=== PATIENT | female | born 1950 | race Caucasian/White ===

== ENCOUNTER 2021-10-27 22:17 | Inpatient (IN) | payer MEDICARE, OTHER ==
[~2021-10-27] VITALS: Ht 154.9 cm; Wt 56.7 kg
--- NOTE | 2021-10-27 22:26 | NUR ---
DR Ricci at bedside, MSE in progress
[2021-10-27] MEDS ORDERED: ATOR10TA PO (22:29)
[2021-10-27] MEDS ORDERED: OMEP20TA20 PO (22:29)
[2021-10-27] MEDS ORDERED: HYDROMORPHONE 1 MG/1 ML DISP.SYRIN IM ONE (22:30)
[2021-10-27] MEDS ORDERED: ONDANSETRON ODT 4 MG TAB.RAPDIS SL ONE (22:30)
[2021-10-27] MEDS ORDERED: HYDROMORPHONE 1 MG/1 ML DISP.SYRIN ONE (22:33)
[2021-10-27] MEDS ORDERED: ONDANSETRON ODT 4 MG TAB.RAPDIS ONE (22:33)
[2021-10-27 22:52] LABS: HEMATOCRIT 34.7 % (31.2-41.9); MEAN CORPUSCULAR HEMOGLOBIN 31.5 uug (24.7-32.8); MEAN CORPUSCULAR VOLUME 89.9 fL (75.5-95.3); PLATELET COUNT (AUTO) 196 K/uL (179-408)
[2021-10-27 23:00] LABS: CREATININE 0.9 mg/dL (0.6-1.3); POTASSIUM 3.4 mmol/L (3.5-5.1)
[2021-10-27 23:05] LABS: BILIRUBIN,DIRECT 0.1 mg/dL (0.0-0.2); BILIRUBIN,TOTAL 0.5 mg/dL (0.2-1.0); TOTAL PROTEIN, SERUM 6.7 g/dL (6.4-8.2)
--- NOTE | 2021-10-27 23:11 | NUR ---
called [facility] for panel call
--- NOTE | 2021-10-27 23:13 | NUR ---
Dr Nieto - jonah, notified
[2021-10-27] MEDS ORDERED: IV D5W-0.45% NS +20 KCL 1,000 ML IV ONE ×2 (23:15→23:32)
[2021-10-28] VITALS (7 sets, daily range): BP systolic 101–133; BP diastolic 49–85
[2021-10-28] MEDS ORDERED: REMEDY ESSENTIAL ZINC PASTE 113 GM TP PRN (00:45)
[2021-10-28] MEDS ORDERED: ACETAMINOPHEN 325 MG TABLET PO PRN (00:45)
[2021-10-28] MEDS ORDERED: MAGNESIUM HYDROXIDE 30 ML LIQUID UDC PO PRN (00:45)
--- NOTE | 2021-10-28 00:56 | NUR ---
Called 3rd floor to give report. Spoke with Yelena LYN; will call me back
--- NOTE | 2021-10-28 01:00 | NUR ---
PATIENT IS A/OX4, NAD NOTED
[2021-10-28] MEDS ORDERED: ONDANSETRON 4 MG/2 ML VIAL ONE ×3 (01:22→13:50)
[2021-10-28] MEDS ORDERED: HYDROMORPHONE 1 MG/1 ML DISP.SYRIN ONE (02:11)
[2021-10-28] MEDS ORDERED: ONDANSETRON 4 MG/2 ML VIAL IV ONE ×2 (02:15→13:00)
[2021-10-28] MEDS ORDERED: HYDROMORPHONE 1 MG/1 ML DISP.SYRIN IV ONE (02:15)
--- NOTE | 2021-10-28 04:20 | NUR ---
called 3rd floor to give report. Waiting for call back
--- NOTE | 2021-10-28 04:37 | NUR ---
report given to Yelena LYN
--- NOTE | 2021-10-28 05:21 | NUR ---
Pt. admitted to room 317 M/S, under care of Gaetano ALANIS Belongs List completed Yelena RN aware of patient's arrival
[2021-10-28] MEDS ORDERED: MORPHINE SULFATE 4 MG/1 ML DISP.SYRIN IV PRN (05:30)
[2021-10-28] MEDS ORDERED: HYDROCODONE/APAP 5-325MG TABLET PO PRN (05:30)
--- NOTE | 2021-10-28 06:00 | NUR ---
ADMITTED THIS 71 Y.O. LADY FROM ER VIA GURNEY, ACCOMPANIED BY ER NURSES, ALERT,ORIENTEDX4, BUT VERY DISTRAUGHT DUE TO LEFT HIP PAIN. TRANSFERRED TO BED VIA SLIDING BOARD, SCREAMING SO LOUD,ACTIVE LISTENING PROVIDED AND MD NOTIFIED REGARDING NEED FOR MEDICATION FOR SEVERE PAIN.VITALS TAKEN AND RECORDED. IVF W/ POTASSIUM INFUSING WELL , IV SITE PATENT AND INTACT ON LEFT AC.REPOSITIONED,
--- NOTE | 2021-10-28 06:22 | NUR ---
MEDICATED W/ MORPHINE SULFATE 4 MG IV FOR SEVERE PAIN,WILL EVALUATE EFFECTIVENESS LATER.
--- NOTE | 2021-10-28 06:23 | NUR ---
NPO OBSERVED AND MAINTAINED.
[2021-10-28 07:09] LABS: HEMATOCRIT 35.2 % (31.2-41.9); MEAN CORPUSCULAR HEMOGLOBIN 31.9 uug (24.7-32.8); MEAN CORPUSCULAR VOLUME 90.9 fL (75.5-95.3); PLATELET COUNT (AUTO) 153 K/uL (179-408)
--- NOTE | 2021-10-28 07:10 | NUR ---
ENDORSED TO AM NURSE,IN APPARENTLY FAIR CONDTION
[2021-10-28 07:30] LABS: CREATININE 0.8 mg/dL (0.6-1.3); POTASSIUM 3.9 mmol/L (3.5-5.1)
--- NOTE | 2021-10-28 08:00 | NUR ---
DR. GARCIA CLEARED PT FOR SURGERY. NOTIFIED DR DELGADO. WILL PERFORM IM NAILING OF LEFT FEMUR.
[2021-10-28] MEDS: DOCUSATE SODIUM 100 MG CAPSULE PO SCH ×2 (09:00→21:04)
[2021-10-28] MEDS: PANTOPRAZOLE SODIUM 40 MG VIAL IV SCH (09:48)
--- NOTE | 2021-10-28 10:00 | NUR ---
SURGERY CONSENT SIGNED BY THE PATIENT. PRE OP CHECK LIST DONE.
[2021-10-28] MEDS ORDERED: VANCOMYCIN 1000 MG VIAL ONE (10:36)
--- NOTE | 2021-10-28 11:45 | NUR ---
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
[2021-10-28] MEDS ORDERED: PROPOFOL 200 MG/20 ML BOTTLE ONE (12:09)
[2021-10-28] MEDS ORDERED: FENTANYL CITRATE 100 MCG/2 ML AMPUL ONE ×2 (12:09→13:44)
[2021-10-28] MEDS ORDERED: ROCURONIUM BROMIDE 50 MG/5 ML VIAL ONE (12:09)
[2021-10-28] MEDS ORDERED: SUCCINYLCHOLINE CHLORIDE 200 MG/10 ML VIAL ONE (12:09)
[2021-10-28] MEDS ORDERED: PHENYLEPHRINE 10 MG/1 ML VIAL IV ONE (13:00)
[2021-10-28] MEDS ORDERED: CEFAZOLIN 1 G VIAL IM ONE (13:00)
[2021-10-28] MEDS ORDERED: EPHEDRINE SULFATE 50 MG/ML AMPUL IM ONE (13:00)
[2021-10-28] MEDS ORDERED: GLYCOPYRROLATE 0.2 MG/ML VIAL IJ ONE (13:00)
[2021-10-28] MEDS ORDERED: DEXAMETHASONE SOD PHOSPHATE 4 MG INJ IV ONE (13:00)
[2021-10-28] MEDS ORDERED: LIDOCAINE-MPF 2% 5 ML VIAL IJ ONE (13:00)
[2021-10-28] MEDS ORDERED: SEVOFLURANE 250 ML BOTTLE IH ONE (13:00)
[2021-10-28] MEDS ORDERED: ETOMIDATE 20 MG/10 ML VIAL IV ONE (13:00)
[2021-10-28] MEDS ORDERED: NEOSTIGMINE METHYLSULFATE 10 MG/10 ML VIAL IM ONE (13:00)
[2021-10-28] MEDS ORDERED: IV D5W-0.45% NS +20 KCL 1,000 ML IV PRN (14:30)
[2021-10-28] MEDS ORDERED: HYDROCODONE/APAP 10-325 MG TABLET PO PRN (14:30)
[2021-10-28] MEDS ORDERED: IV D5W-0.45% NS +20 KCL 1,000 ML IV ONE (14:54)
[2021-10-28] MEDS: HYDROMORPHONE 1 MG/1 ML DISP.SYRIN IV PRN ×2 (16:52→21:12)
[2021-10-28] MEDS: ONDANSETRON 4 MG/2 ML VIAL IV PRN (17:30)
--- NOTE | 2021-10-28 19:00 | NUR ---
received patient in bed no sob no chest pain, no complain of pain at thie time, cont abx and hydration, cont to monitor.
[2021-10-28] MEDS: CEFAZOLIN 1 G in IV DEXTROSE 5% 50 ML IV SCH (21:04)
[2021-10-28] MEDS: ATORVASTATIN 10 MG TABLET PO SCH (21:04)
--- NOTE | 2021-10-28 21:42 | NUR ---
Patient alert awake able to make needs known, given Dilaudid 0.5mg via IV for pain of 8/10 left hip with effective results. cont to monitor.
--- NOTE | 2021-10-28 22:45 | NUR ---
report given to the next nurse.
--- NOTE | 2021-10-28 23:40 | NUR ---
RECD PT IN BED, ALERT, ORIENTED X4, RESTING QUETLY, NO DISTRESS NOTED,IV SITE PATENT AND INTACT., INSTRUCION ON HOW TO USE INCENTIVE SPIROMETER DONE. .
[2021-10-29] MEDS: ONDANSETRON 4 MG/2 ML VIAL IV PRN ×3 (03:15→18:15)
[2021-10-29] MEDS: HYDROMORPHONE 1 MG/1 ML DISP.SYRIN IV PRN ×5 (03:15→18:15)
--- NOTE | 2021-10-29 03:15 | NUR ---
REPOSITIONED FOR COMFORT, ICE PACK TO OPERATIVE SITE, MEDICATED W/ DILAUDID0.5 MG IV FOR PAIN AND ZOFRAN 4 MG IV FOR NAUSEA, RELIF AFFORDED. SLEPT AT SHORT INTERVALS.CIRC. CHECKS W/I NORMAL LIMITS.
[2021-10-29 04:35] VITALS: BP 107/62
[2021-10-29] MEDS: CEFAZOLIN 1 G in IV DEXTROSE 5% 50 ML IV SCH (04:41)
[2021-10-29 08:15] LABS: CREATININE 0.8 mg/dL (0.6-1.3); MAGNESIUM 1.7 mg/dL (1.8-2.4); PHOSPHOROUS 3.2 mg/dL (2.5-4.9); POTASSIUM 3.9 mmol/L (3.5-5.1)
[2021-10-29 08:30] LABS: HEMATOCRIT 27.7 % (31.2-41.9); MEAN CORPUSCULAR VOLUME 90.2 fL (75.5-95.3); PLATELET COUNT (AUTO) 114 K/uL (179-408)
[2021-10-29] MEDS: DOCUSATE SODIUM 100 MG CAPSULE PO SCH ×2 (09:47→21:25)
[2021-10-29] MEDS: PANTOPRAZOLE SODIUM 40 MG VIAL IV SCH (09:50)
[2021-10-29] MEDS ORDERED: MAGNESIUM OXIDE 400 MG TABLET PO ONE ×2 (10:15→12:00)
--- NOTE | 2021-10-29 11:55 | NUR ---
LEFT AC IV ACCESS INFILTRATED AND REMOVED. CHU MIDLINE 18G ESTABLISHED.
[2021-10-29 12:47] VITALS: BP 98/65
--- NOTE | 2021-10-29 13:00 | NUR ---
PT EVAL DONE. PT TOLERATED WELL. 50% WEIGHT BEARING PER PT.
[2021-10-29 15:58] VITALS: BP 96/61
[2021-10-29 20:20] VITALS: BP 88/50
[2021-10-29] MEDS ORDERED: MAG HYDROX/AL HYDROX/SIMETH 30 ML LIQUID UDC PO PRN (21:15)
[2021-10-29] MEDS: ATORVASTATIN 10 MG TABLET PO SCH (21:25)
[2021-10-29 21:36] VITALS: BP 110/57
[2021-10-30] MEDS: HYDROMORPHONE 1 MG/1 ML DISP.SYRIN IV PRN ×4 (00:15→14:25)
[2021-10-30] MEDS: ONDANSETRON 4 MG/2 ML VIAL IV PRN ×3 (00:15→14:26)
[2021-10-30 04:22] VITALS: BP 97/54
[2021-10-30] MEDS: PANTOPRAZOLE SODIUM 40 MG VIAL IV SCH (06:33)
[2021-10-30 06:55] LABS: HEMATOCRIT 25.1 % (31.2-41.9); MEAN CORPUSCULAR HEMOGLOBIN 32.4 uug (24.7-32.8); MEAN CORPUSCULAR VOLUME 89.9 fL (75.5-95.3); PLATELET COUNT (AUTO) 110 K/uL (179-408)
[2021-10-30 07:43] LABS: CREATININE 0.8 mg/dL (0.6-1.3); MAGNESIUM 2.1 mg/dL (1.8-2.4); PHOSPHOROUS 2.4 mg/dL (2.5-4.9); POTASSIUM 3.6 mmol/L (3.5-5.1)
[2021-10-30] MEDS: DOCUSATE SODIUM 100 MG CAPSULE PO SCH (08:33)
[2021-10-30] MEDS ORDERED: PANTOPRAZOLE SODIUM 40 MG TABLET.DR PO SCH (09:00)
[2021-10-30] MEDS ORDERED: NEUTRA PHOS PACKET PO ONE (09:15)
[2021-10-30 11:06] VITALS: BP 108/43
[2021-10-30] MEDS ORDERED: MAG30ORA PO (13:37)
[2021-10-30] MEDS ORDERED: DOCU-141 PO (13:37)
[2021-10-30] MEDS ORDERED: ACET325T53 PO (13:37)
[2021-10-30] MEDS ORDERED: HYDR-3980 PO ×2 (13:37→15:44)
[2021-10-30] MEDS ORDERED: MAGN400O6 PO ×2 (13:37→15:44)
[2021-10-30] MEDS ORDERED: PANT40TA49 PO (13:37)
--- NOTE | 2021-10-30 14:47 | NUR ---
Patient to be discharged from [facility] and admitted into Acute Rehab Facility. Discharge education provided.
[2021-10-30] MEDS ORDERED: ACET-2154 PO ×2 (15:24→15:44)
[2021-10-30] MEDS ORDERED: PANT40TA2 PO (15:44)
[2021-10-30] MEDS ORDERED: ONDA-104 IV (15:44)
[2021-10-30] MEDS ORDERED: ATOR10TA PO (15:44)
[2021-10-30] MEDS ORDERED: [UNRECOGNIZED DRUG - CODE] IV (15:44)
[2021-10-30] MEDS ORDERED: DOCU100C36 PO (15:44)
[2021-10-30] MEDS ORDERED: MAG30ORA14 PO (15:44)
[2021-10-31] MEDS ORDERED: PANTOPRAZOLE SODIUM 40 MG TABLET.DR PO SCH (07:00)
== END 2021-10-30 14:55 | DRG 482 ==
LOC: ER 22:17 → MEDSURG3 23:16
PROVIDERS: ADMIT Registered Nurse; ATTEND Registered Nurse
PROC: 0QS736Z Reposition Left Upper Femur with Intramedullary Internal Fixation Device, Percutaneous Approach (ICD-10-PCS; principal; 2021-10-28)
PROC: 05H633Z Insertion of Infusion Device into Left Subclavian Vein, Percutaneous Approach (ICD-10-PCS; 2021-10-29)
PROC: B547ZZA Ultrasonography of Left Subclavian Vein, Guidance (ICD-10-PCS; 2021-10-29)
DX: S72.142A Displaced intertrochanteric fracture of left femur, initial encounter for closed fracture (principal); W01.0XXA Fall on same level from slipping, tripping and stumbling without subsequent striking against object, initial encounter; Y93.H2 Activity, gardening and landscaping; Y92.017 Garden or yard in single-family (private) house as the place of occurrence of the external cause; Z96.651 Presence of right artificial knee joint; E78.5 Hyperlipidemia, unspecified; K21.9 Gastro-esophageal reflux disease without esophagitis; Z20.822 Contact with and (suspected) exposure to COVID-19
CPT/HCPCS: 36415; 51702; 71045; 72170; 73502; 73503; 83735; 84100; 85025; 85730; 93005; 93307; A4649; A4663; A6209; C1713; C9113; G0378; J0330; J0690; J1100; J1170; J2270; J2370; J2405; J3010; J3370; J3490; Q0162

== ENCOUNTER 2021-10-30 14:55 | Inpatient (IN) | payer MEDICARE, OTHER ==
[~2021-10-30] VITALS: Ht 154.9 cm; Wt 59.0 kg
[~2021-10-30 14:55] MED LIST: ACET325T53 PO; ATOR10TA PO; DOCU-141 PO; HYDR-3980 PO; MAG30ORA PO; MAGN400O6 PO; OMEP20TA20 PO; PANT40TA49 PO
[2021-10-30] MEDS ORDERED: REMEDY ESSENTIAL ZINC PASTE 113 GM TOP PRN (15:15)
[2021-10-30] MEDS ORDERED: ACET-2154 PO ×2 (15:24→15:44)
[2021-10-30 15:27] VITALS: BP 97/57
[2021-10-30] MEDS ORDERED: DOCU100C36 PO (15:44)
[2021-10-30] MEDS ORDERED: [UNRECOGNIZED DRUG - CODE] IV (15:44)
[2021-10-30] MEDS ORDERED: PANT40TA2 PO (15:44)
[2021-10-30] MEDS ORDERED: HYDR-3980 PO (15:44)
[2021-10-30] MEDS ORDERED: ATOR10TA PO (15:44)
[2021-10-30] MEDS ORDERED: ONDA-104 IV (15:44)
[2021-10-30] MEDS ORDERED: MAG30ORA14 PO (15:44)
[2021-10-30] MEDS ORDERED: MAGN400O6 PO (15:44)
--- NOTE | 2021-10-30 18:16 | NUR ---
Patient admitted into Acute Rehab Unit. Orders placed. Meds ordered. Admission process complete. Patient with no complaints of pain or distress. IV site patent and intact. Bed left in lowest position with call light within reach. Will endorse information to PM nurse.
[2021-10-30] MEDS ORDERED: ACETAMINOPHEN 325 MG TABLET-SA PATIENTS-PAIN ONLY PO PRN (20:15)
[2021-10-30] MEDS ORDERED: ALUMINUM HYD PO SCH (20:15)
[2021-10-30] MEDS ORDERED: SIMETH PO SCH (20:15)
[2021-10-30] MEDS ORDERED: HYDROCODONE/APAP 10-325 MG TABLET PO PRN (20:15)
[2021-10-30] MEDS ORDERED: MAGNESIUM HYDROXIDE 30 ML LIQUID UDC PO PRN (20:15)
[2021-10-30] MEDS ORDERED: MAG HYDROX/AL HYDROX/SIMETH 30 ML LIQUID UDC PO PRN (20:15)
[2021-10-30] MEDS ORDERED: ACETAMINOPHEN 325 MG TABLET PO PRN (20:15)
[2021-10-30] MEDS ORDERED: [UNRECOGNIZED DRUG - OTHER] PO SCH (20:15)
[2021-10-30] MEDS ORDERED: MAG HYDROX PO SCH (20:15)
[2021-10-30 20:43] VITALS: BP 98/54
[2021-10-30] MEDS ORDERED: ATORVASTATIN 10 MG TABLET PO SCH (21:00)
[2021-10-30] MEDS ORDERED: DOCUSATE SODIUM 100 MG CAPSULE PO SCH (21:00)
[2021-10-30] MEDS ORDERED: MAGNESIUM HYDROXIDE 30 ML LIQUID UDC PO SCH (21:00)
[2021-10-30] MEDS: DOCUSATE SODIUM 100 MG CAPSULE PO SCH (21:11)
[2021-10-30] MEDS: ATORVASTATIN 10 MG TABLET PO SCH (21:11)
[2021-10-30] MEDS: HYDROCODONE/APAP 10-325 MG TABLET PO PRN (21:12)
[2021-10-31 04:47] VITALS: BP 104/53
[2021-10-31] MEDS: HYDROCODONE/APAP 10-325 MG TABLET PO PRN ×4 (04:56→23:46)
[2021-10-31] MEDS: PANTOPRAZOLE SODIUM 40 MG TABLET.DR PO SCH (06:07)
[2021-10-31 07:21] VITALS: BP 92/72
[2021-10-31 07:30] VITALS: BP 92/49
--- NOTE | 2021-10-31 08:00 | NUR ---
awake alert and oriented, denies of pain at this time, left hip dressing dry and intact, on 02 at 3l/nc- no dyspnea noted, call light within reach
[2021-10-31] MEDS: DOCUSATE SODIUM 100 MG CAPSULE PO SCH ×2 (09:00→21:14)
[2021-10-31] MEDS ORDERED: PANTOPRAZOLE SODIUM 40 MG TABLET.DR PO SCH (09:00)
[2021-10-31 11:00] VITALS: BP 92/49
[2021-10-31] MEDS: ONDANSETRON 4 MG/2 ML VIAL IV PRN (13:06)
[2021-10-31 16:00] VITALS: BP 94/50
--- NOTE | 2021-10-31 18:00 | NUR ---
no distress noted, medicated x 1 for pain and also nausea, all needs attended and met, call light within reach
[2021-10-31 20:00] VITALS: BP 91/51
[2021-10-31] MEDS: ATORVASTATIN 10 MG TABLET PO SCH (21:14)
[2021-10-31] MEDS: ENOXAPARIN SODIUM 40 MG/0.4 ML DISP.SYRIN SQ SCH (21:32)
[2021-11-01 04:00] VITALS: BP 104/60
[2021-11-01] MEDS: PANTOPRAZOLE SODIUM 40 MG TABLET.DR PO SCH (06:11)
--- NOTE | 2021-11-01 06:58 | NUR ---
tried to titrate the o2 however patient desaturated to high 80s on room air, lungs are clear upon auscultation, no sob, respirations are even nonlabored, no respiratory distress noted. continue to monitor
[2021-11-01 07:50] VITALS: BP 98/54
[2021-11-01] MEDS: ONDANSETRON 4 MG/2 ML VIAL IV PRN ×3 (08:00→23:36)
--- NOTE | 2021-11-01 08:00 | NUR ---
resting in bed, states would like to get her nausea and pain med for left hip pain, left hip incision with mepilex drg dry and intact, seen by hospitalist Kayla Guillen, needs attended, breakfast served, call light within reach
[2021-11-01] MEDS: DOCUSATE SODIUM 100 MG CAPSULE PO SCH ×2 (08:07→20:12)
[2021-11-01] MEDS: HYDROCODONE/APAP 10-325 MG TABLET PO PRN ×3 (08:07→23:36)
--- NOTE | 2021-11-01 16:00 | NUR ---
up in w/c - no distress noted
[2021-11-01 16:46] VITALS: BP 93/45
--- NOTE | 2021-11-01 18:44 | NUR ---
pt in no distress, resting in bed now, had Rudyard x 2 and zogran iv x2 this shift- pain and nausea relieved with meds, all needs attended and met, call light within reach
[2021-11-01 20:52] VITALS: BP 101/50
[2021-11-01] MEDS: ENOXAPARIN SODIUM 40 MG/0.4 ML DISP.SYRIN SQ SCH (21:12)
[2021-11-01] MEDS: ATORVASTATIN 10 MG TABLET PO SCH (21:14)
--- NOTE | 2021-11-01 21:30 | NUR ---
Informed Wilmer ASPHALT PAVING SUPERVISOR of Platelet to confirm if Lovenox is still to be given. Per Wilmer, to still administer Lovenox.
[2021-11-02 04:23] VITALS: BP 1/48
[2021-11-02] MEDS: PANTOPRAZOLE SODIUM 40 MG TABLET.DR PO SCH (06:10)
[2021-11-02 07:33] VITALS: BP 100/43
[2021-11-02] MEDS: HYDROCODONE/APAP 10-325 MG TABLET PO PRN ×3 (08:53→18:14)
[2021-11-02] MEDS: DOCUSATE SODIUM 100 MG CAPSULE PO SCH ×2 (08:57→21:15)
--- NOTE | 2021-11-02 09:03 | NUR ---
INDIVIDUALIZED PLAN OF CARE
[2021-11-02] MEDS: ONDANSETRON 4 MG/2 ML VIAL IV PRN ×3 (09:09→18:15)
[2021-11-02 16:00] VITALS: BP 92/53
--- NOTE | 2021-11-02 18:49 | NUR ---
Patient is comfortable. PRN [place] and Zofran given as needed. Patient has a F/C, draining freely with clear color. No s/s of distress noted. Patient has a IV on left upper arm midline. She was able to walk with PT. She does need assist getting in and out of bed.
[2021-11-02 20:00] VITALS: BP 101/54
[2021-11-02] MEDS: ENOXAPARIN SODIUM 40 MG/0.4 ML DISP.SYRIN SQ SCH (21:00)
[2021-11-02] MEDS: ATORVASTATIN 10 MG TABLET PO SCH (21:15)
--- NOTE | 2021-11-03 00:36 | NUR ---
Talked with patient didnt give hs lovenox platelets are low 110 informed charge nurse won't give with low platelets states"chart it. Last blood draw was on requested a new blood draw for patient. Will endorsed to am nurse will continue to monitor for safety and falls.
[2021-11-03] MEDS: HYDROCODONE/APAP 10-325 MG TABLET PO PRN ×3 (00:49→13:51)
[2021-11-03] MEDS: ONDANSETRON 4 MG/2 ML VIAL IV PRN ×2 (00:50→09:41)
[2021-11-03 04:00] VITALS: BP 95/64
[2021-11-03] MEDS: PANTOPRAZOLE SODIUM 40 MG TABLET.DR PO SCH (06:51)
[2021-11-03 08:00] VITALS: BP 96/54
[2021-11-03] MEDS: DOCUSATE SODIUM 100 MG CAPSULE PO SCH ×2 (09:41→21:05)
[2021-11-03 20:00] VITALS: BP 98/60
[2021-11-03] MEDS: ENOXAPARIN SODIUM 40 MG/0.4 ML DISP.SYRIN SQ SCH (21:00)
[2021-11-03] MEDS: ATORVASTATIN 10 MG TABLET PO SCH (21:05)
[2021-11-04] MEDS: HYDROCODONE/APAP 10-325 MG TABLET PO PRN ×4 (00:15→17:34)
[2021-11-04] MEDS: ONDANSETRON 4 MG/2 ML VIAL IV PRN ×4 (00:15→17:34)
[2021-11-04 04:00] VITALS: BP 98/65
--- NOTE | 2021-11-04 05:57 | NUR ---
Slept throughout the night. No distress noted. Able to make needs known. IV site intact, tolerated all medications. Devine intact draining to gravity. Pain relived by [place]. Safety maintained. Will endorse to day shift.
[2021-11-04] MEDS: PANTOPRAZOLE SODIUM 40 MG TABLET.DR PO SCH (06:09)
[2021-11-04 08:00] VITALS: BP 94/51
[2021-11-04] MEDS: DOCUSATE SODIUM 100 MG CAPSULE PO SCH ×2 (09:00→20:57)
--- NOTE | 2021-11-04 15:17 | NUR ---
Patient is A&Ox4, comfortable at this time. Medicated x2 for [place] and Zofran. Normal air movement. Patient has a Devine in place, draining freely with clear yellow urine. she ia able to take pills whole. Patient was able to walk with Pt 10-20 ft mid assist. She walks with front wheel walker 50% weight bearing on lower extremities. No apparent distress noted. Skin intact, dressings are still not removed so pictures were not taken. Right upper midline.
[2021-11-04 16:00] VITALS: BP 99/54
--- NOTE | 2021-11-04 16:17 | NUR ---
INTERDISCIPLINARY TEAM CONFERENCE
[2021-11-04 20:00] VITALS: BP 108/56
[2021-11-04] MEDS: ATORVASTATIN 10 MG TABLET PO SCH (20:57)
[2021-11-04] MEDS: ENOXAPARIN SODIUM 40 MG/0.4 ML DISP.SYRIN SQ SCH (21:00)
[2021-11-05 04:00] VITALS: BP 94/53
[2021-11-05] MEDS: PANTOPRAZOLE SODIUM 40 MG TABLET.DR PO SCH (06:13)
[2021-11-05 07:55] VITALS: BP 98/51
[2021-11-05] MEDS: DOCUSATE SODIUM 100 MG CAPSULE PO SCH ×2 (08:51→20:16)
[2021-11-05] MEDS: HYDROCODONE/APAP 10-325 MG TABLET PO PRN ×3 (10:19→22:18)
[2021-11-05] MEDS: ONDANSETRON 4 MG/2 ML VIAL IV PRN ×3 (10:19→18:45)
--- NOTE | 2021-11-05 10:34 | NUR ---
pt. reported feeling nauseous and removed Zofran to administer but pt. refused at bed side. Will continue to monitor.
--- NOTE | 2021-11-05 11:02 | NUR ---
Pt changed her mind about getting zofran, administered original dose IV. Pt stated that Enigma at times makes her nauseated and likes to take them together.
[2021-11-05 16:16] VITALS: BP 88/46
[2021-11-05 20:00] VITALS: BP 102/44
[2021-11-05] MEDS: ENOXAPARIN SODIUM 40 MG/0.4 ML DISP.SYRIN SQ SCH (20:16)
[2021-11-05] MEDS: ATORVASTATIN 10 MG TABLET PO SCH (20:16)
[2021-11-06 04:00] VITALS: BP 103/61
[2021-11-06] MEDS: PANTOPRAZOLE SODIUM 40 MG TABLET.DR PO SCH (06:10)
[2021-11-06 08:07] VITALS: BP 123/60
[2021-11-06] MEDS: DOCUSATE SODIUM 100 MG CAPSULE PO SCH ×2 (09:01→20:09)
[2021-11-06] MEDS: HYDROCODONE/APAP 10-325 MG TABLET PO PRN ×2 (09:07→18:33)
[2021-11-06] MEDS: ONDANSETRON 4 MG/2 ML VIAL IV PRN (09:07)
[2021-11-06 16:00] VITALS: BP 107/60
--- NOTE | 2021-11-06 17:33 | NUR ---
Removed pt's landa per MD order, set up bedside commode. 1000cc emptied from landa catheter. Will monitor and endorse to monitor pt urine output.
[2021-11-06] MEDS: ATORVASTATIN 10 MG TABLET PO SCH (20:09)
[2021-11-06] MEDS: ENOXAPARIN SODIUM 40 MG/0.4 ML DISP.SYRIN SQ SCH (20:09)
[2021-11-06 20:39] VITALS: BP 98/53
[2021-11-07] MEDS: HYDROCODONE/APAP 10-325 MG TABLET PO PRN ×3 (02:53→20:08)
[2021-11-07 04:42] VITALS: BP 98/48
[2021-11-07] MEDS: PANTOPRAZOLE SODIUM 40 MG TABLET.DR PO SCH (06:36)
[2021-11-07 08:00] VITALS: BP 100/56
[2021-11-07] MEDS: DOCUSATE SODIUM 100 MG CAPSULE PO SCH ×2 (09:00→20:09)
[2021-11-07] MEDS: ONDANSETRON 4 MG/2 ML VIAL IV PRN (09:23)
[2021-11-07 16:00] VITALS: BP 129/70
--- NOTE | 2021-11-07 16:13 | NUR ---
Pt is A&Ox4, No apparent distress, cooperative and breathing normal room air. No acute distress noted. During the AM hour pt request for a pain pill. Noco/Zofran given, tolerated welll. MANDI midline. Pt is able yo swallow pill whole. She can walk with front wheel walker with 50% weight bearing. Pt walked with PT today up and down the hallway. Will continue to monitor.
[2021-11-07] MEDS: ATORVASTATIN 10 MG TABLET PO SCH (20:08)
[2021-11-07] MEDS: ENOXAPARIN SODIUM 40 MG/0.4 ML DISP.SYRIN SQ SCH (20:08)
[2021-11-07 20:38] VITALS: BP 102/54
[2021-11-08 04:59] VITALS: BP 107/54
[2021-11-08] MEDS: PANTOPRAZOLE SODIUM 40 MG TABLET.DR PO SCH (06:09)
[2021-11-08 08:03] VITALS: BP 94/56
[2021-11-08] MEDS: DOCUSATE SODIUM 100 MG CAPSULE PO SCH ×2 (08:30→21:39)
[2021-11-08] MEDS: ONDANSETRON 4 MG/2 ML VIAL IV PRN (10:40)
[2021-11-08] MEDS: HYDROCODONE/APAP 10-325 MG TABLET PO PRN ×2 (10:40→18:42)
--- NOTE | 2021-11-08 10:46 | NUR ---
0700-Rec'd patient in bed, awake, alert and oriented x4, able to communicate her needs and follow directions. No apparent respiratory distress noted, no c/o pain at this time. Call light within reach. 0900-Scheduled/due medication administered as ordered, taken and james. well, no ASE noted, oral fluids encouraged and taken well. 10:40AM-Medicated patient PRN for her pain based on her pain level and for nausea; as ordered by .
[2021-11-08 16:06] VITALS: BP 106/54
[2021-11-08 20:13] VITALS: BP 98/55
[2021-11-08] MEDS: ENOXAPARIN SODIUM 40 MG/0.4 ML DISP.SYRIN SQ SCH (21:00)
[2021-11-08] MEDS: ATORVASTATIN 10 MG TABLET PO SCH (21:39)
[2021-11-09 04:36] VITALS: BP 98/54
[2021-11-09] MEDS: PANTOPRAZOLE SODIUM 40 MG TABLET.DR PO SCH (06:31)
[2021-11-09 08:05] VITALS: BP 96/50
[2021-11-09] MEDS: HYDROCODONE/APAP 10-325 MG TABLET PO PRN ×3 (09:04→21:24)
[2021-11-09] MEDS: ONDANSETRON 4 MG/2 ML VIAL IV PRN ×2 (09:05→13:31)
[2021-11-09] MEDS: DOCUSATE SODIUM 100 MG CAPSULE PO SCH ×2 (10:56→21:16)
--- NOTE | 2021-11-09 12:29 | NUR ---
Patient is a 71 year old female. Received in bed awake. She is A&Ox4, made eye contact and able to make her needs known. no apparent distress noted with normal air movement. 0900 scheduled medication given. Patient complained of pain, [place] and Zofran given at 1000, patient tolerated well. Patient comfortable and will continue to monitor
[2021-11-09 17:44] VITALS: BP 99/55
[2021-11-09] MEDS: ENOXAPARIN SODIUM 40 MG/0.4 ML DISP.SYRIN SQ SCH (21:00)
[2021-11-09] MEDS: ATORVASTATIN 10 MG TABLET PO SCH (21:16)
--- NOTE | 2021-11-09 21:17 | NUR ---
Patient refused Lovenox again at this time despite explaining the risk and benefits. Will endorse accordingly.
[2021-11-09] MEDS ORDERED: METHYL SALICYLATE/MENTHOL CREAM 28 GM TUBE TOP PRN (21:45)
[2021-11-09 21:48] VITALS: BP 101/56
[2021-11-10 04:15] VITALS: BP 106/51
[2021-11-10] MEDS: PANTOPRAZOLE SODIUM 40 MG TABLET.DR PO SCH (06:14)
[2021-11-10] MEDS ORDERED: METHYL SALICYLATE/MENTHOL CREAM 28 GM TUBE TOP PRN (07:45)
[2021-11-10 08:38] VITALS: BP 90/50
[2021-11-10] MEDS: DOCUSATE SODIUM 100 MG CAPSULE PO SCH ×2 (09:07→21:11)
[2021-11-10] MEDS: ONDANSETRON 4 MG/2 ML VIAL IV PRN (09:10)
[2021-11-10] MEDS: HYDROCODONE/APAP 10-325 MG TABLET PO PRN ×2 (09:11→21:22)
--- NOTE | 2021-11-10 11:54 | NUR ---
ORDER TO REMOVE ABEL AND TO CHECK XRAY OF THE LEFT HIP NOTED AND CARRIES OUT.
[2021-11-10 16:00] VITALS: BP 99/50
--- NOTE | 2021-11-10 18:00 | NUR ---
TOLERATED PHYSICAL THERAPY ORDERED WAS UNABLE TO REMOVE ABEL AT THIS TIME PATIENT IS SITTING ON IN THE CHAIR IN HER ROOM AND REQUESTED TO HAVE ABEL REMOVED LATER WHEN SHE GOES TO BED WILL ENDORSE TO ONCOMING SHIFT
[2021-11-10 20:00] VITALS: BP 104/50
[2021-11-10] MEDS: ATORVASTATIN 10 MG TABLET PO SCH (21:11)
[2021-11-10] MEDS: ENOXAPARIN SODIUM 40 MG/0.4 ML DISP.SYRIN SQ SCH (21:24)
[2021-11-11 04:00] VITALS: BP 90/52
[2021-11-11] MEDS: PANTOPRAZOLE SODIUM 40 MG TABLET.DR PO SCH (06:16)
[2021-11-11] MEDS: HYDROCODONE/APAP 10-325 MG TABLET PO PRN ×3 (07:19→22:47)
[2021-11-11 07:56] VITALS: BP 98/53
[2021-11-11] MEDS: DOCUSATE SODIUM 100 MG CAPSULE PO SCH ×2 (08:58→22:26)
[2021-11-11] MEDS: ONDANSETRON 4 MG/2 ML VIAL IV PRN (09:38)
--- NOTE | 2021-11-11 09:38 | NUR ---
PATIENT IS ALERT AND ORIENTED DENIES DISCOMFORTS STATED THAT HE FEELS NAUSEATED SO ZOFRAN GIVEN ORDERED VIA MIDLINE ON LEFT UPPER ARM AND FLUSHED PER PROTOCOL LEFT HIP WITH STERI STRIPS INTACT WITH NO DRAINAGE AT THIS TIME CALL LIGHTS AND PERSONAL BELONGINGS ARE WITHIN EASY REACH WILL CONTINUE TO OBSERVE.
--- NOTE | 2021-11-11 14:10 | NUR ---
INTERDISCIPLINARY TEAM CONFERENCE
[2021-11-11 16:26] VITALS: BP 98/55
[2021-11-11] MEDS: NUTRISOURCE FIBER 4 GM PACKET PO SCH (17:00)
--- NOTE | 2021-11-11 18:00 | NUR ---
SPECIMEN FOR RAPID COVID TEST OBTAINED AND SENT TO THE LAB ORDERED
[2021-11-11 20:00] VITALS: BP 106/55
--- NOTE | 2021-11-11 20:00 | NUR ---
RECD UP IN WHEELCHAIR VISITING WITH RELATIVE. NO ACUTE DISTRESS NOTED. NO COMPLAINTS OF PAIN PRESENTED. POSSIBLE DISCHARGE TUESDAY. AWAITING RESULTS OF RAPID COVID.
[2021-11-11] MEDS: ENOXAPARIN SODIUM 40 MG/0.4 ML DISP.SYRIN SQ SCH (21:00)
[2021-11-11] MEDS: ATORVASTATIN 10 MG TABLET PO SCH (22:26)
[2021-11-12 04:00] VITALS: BP 102/48
[2021-11-12] MEDS: PANTOPRAZOLE SODIUM 40 MG TABLET.DR PO SCH (06:30)
[2021-11-12 08:00] VITALS: BP 100/49
[2021-11-12] MEDS: DOCUSATE SODIUM 100 MG CAPSULE PO SCH ×2 (09:19→20:17)
[2021-11-12] MEDS: NUTRISOURCE FIBER 4 GM PACKET PO SCH ×2 (09:19→16:36)
[2021-11-12] MEDS: HYDROCODONE/APAP 10-325 MG TABLET PO PRN ×2 (11:36→20:11)
[2021-11-12] MEDS: ONDANSETRON 4 MG/2 ML VIAL IV PRN (11:36)
--- NOTE | 2021-11-12 19:00 | NUR ---
PT IN BED. ALERT AND ORIENTED X4. RESTED WELL, NO ACUTE DISTRESS. FOR D/C IN AM TO [facility]. RAPID COVID IS NEGATIVE. VITAL SIGNS NORMAL AND SKIN INTACT.
[2021-11-12 20:00] VITALS: BP 90/46
[2021-11-12] MEDS: ATORVASTATIN 10 MG TABLET PO SCH (20:10)
[2021-11-12] MEDS: ENOXAPARIN SODIUM 40 MG/0.4 ML DISP.SYRIN SQ SCH (21:00)
[2021-11-13 04:00] VITALS: BP 90/47
--- NOTE | 2021-11-13 05:55 | NUR ---
PT CONTINUED TO REFUSE LOVENOX ADMINISTRATION. WILL NOTIFY MD AND COMMUNICATE TO NEXT NURSE.
[2021-11-13] MEDS: PANTOPRAZOLE SODIUM 40 MG TABLET.DR PO SCH (06:30)
[2021-11-13 07:37] VITALS: BP 100/54
[2021-11-13 07:57] LABS: HEMATOCRIT 26.2 % (31.2-41.9); MEAN CORPUSCULAR HEMOGLOBIN 30.8 uug (24.7-32.8); MEAN CORPUSCULAR VOLUME 91.3 fL (75.5-95.3); PLATELET COUNT (AUTO) 439 K/uL (179-408)
[2021-11-13 08:04] LABS: BILIRUBIN,TOTAL 0.7 mg/dL (0.2-1.0); CREATININE 0.7 mg/dL (0.6-1.3); PHOSPHOROUS 4.3 mg/dL (2.5-4.9); TOTAL PROTEIN, SERUM 5.8 g/dL (6.4-8.2)
[2021-11-13 08:12] LABS: THYROID STIMULATING HORMONE 1.46 mIU/mL (0.358-3.740)
[2021-11-13] MEDS: DOCUSATE SODIUM 100 MG CAPSULE PO SCH (10:05)
[2021-11-13] MEDS: ONDANSETRON ODT 4 MG TAB.RAPDIS SL PRN ×2 (10:05→17:15)
[2021-11-13] MEDS: HYDROCODONE/APAP 10-325 MG TABLET PO PRN ×2 (10:05→17:14)
[2021-11-13] MEDS: NUTRISOURCE FIBER 4 GM PACKET PO SCH ×2 (10:06→17:14)
[2021-11-13 15:00] VITALS: BP 105/77
--- NOTE | 2021-11-13 17:07 | NUR ---
d/c to snf picked up by ambulance. report given to receiving facility. Addendum: 11/13/21 at 1746 by Janie Alex RN her friend is here to pick her up and take her to [facility]. she refused skin pics of her hip. report given to tamiko at [facility]
== END 2021-11-13 17:40 | DRG 560 ==
PROVIDERS: ADMIT Physical Medicine & Rehabilitation Pain Medicine; ATTEND Physical Medicine & Rehabilitation Pain Medicine
DX: S72.142D Displaced intertrochanteric fracture of left femur, subsequent encounter for closed fracture with routine healing (principal); D68.69 Other thrombophilia; W01.0XXD Fall on same level from slipping, tripping and stumbling without subsequent striking against object, subsequent encounter; K21.9 Gastro-esophageal reflux disease without esophagitis; E78.5 Hyperlipidemia, unspecified; R53.1 Weakness
CPT/HCPCS: 36415; 73501; 83735; 84100; 84443; 85025; 97161; 97535-GO-CO; J1650; J2405; Q0162

== ENCOUNTER 2022-07-09 21:27 | Emergency (ER) | payer MEDICARE, OTHER ==
[~2022-07-09] VITALS: Ht 152.4 cm; Wt 54.4 kg
[~2022-07-09 21:27] MED LIST changes: +ACET-2154 PO; +DOCU100C36 PO; +MAG30ORA14 PO; +ONDA-104 IV; +PANT40TA2 PO; +[UNRECOGNIZED DRUG - CODE] IV
--- NOTE | 2022-07-09 21:50 | NUR ---
Pt is noted alert, responsive as she came in C/O Left mouth pain x1day, States had Dental Surgery today. Pt care continue as awaits MD orders.
[2022-07-09] MEDS ORDERED: ONDA4TAB5 PO (21:54)
[2022-07-09] MEDS ORDERED: HYDR-3980 PO (21:54)
[2022-07-09] MEDS ORDERED: HYDROCODONE/APAP 10-325 MG TABLET PO ONE (22:00)
[2022-07-09] MEDS ORDERED: ONDANSETRON ODT 4 MG TAB.RAPDIS SL ONE (22:00)
[2022-07-09] MEDS ORDERED: ONDANSETRON ODT 4 MG TAB.RAPDIS ONE (22:01)
[2022-07-09] MEDS ORDERED: HYDROCODONE/APAP 10-325 MG TABLET ONE (22:02)
--- NOTE | 2022-07-09 22:05 | NUR ---
Pt care continue as she is been medicated with NORCO 10MG X1TAB and Zofran 4mg PO.
[2022-07-09 23:06] VITALS: BP 122/74
== END 2022-07-09 23:07 | disposition home or self-care (01) ==
LOC: ER 21:27
DX: K08.89 Other specified disorders of teeth and supporting structures (principal); E78.5 Hyperlipidemia, unspecified; K21.9 Gastro-esophageal reflux disease without esophagitis; Z79.899 Other long term (current) drug therapy
CPT/HCPCS: A4663; Q0162

== ENCOUNTER 2024-04-04 22:32 | Emergency (ER) | payer MEDICARE, OTHER ==
[~2024-04-04] VITALS: Ht 160 cm; Wt 59.0 kg
[~2024-04-04 22:32] MED LIST changes: +ONDA4TAB5 PO
[2024-04-04] MEDS ORDERED: IBUPROFEN 600 MG TABLET ONE (23:18)
[2024-04-04] MEDS: IBUPROFEN 600 MG TABLET PO ONE (23:21)
[2024-04-05] MEDS ORDERED: ONDA4TAB11 PO (00:04)
[2024-04-05] MEDS ORDERED: MAGN400O6 PO (00:04)
[2024-04-05 01:25] VITALS: BP 130/78; TEMP 98.2; O2SAT 98
== END 2024-04-05 00:45 | disposition home or self-care (01) ==
LOC: ER 22:32
DX: S42.291A Other displaced fracture of upper end of right humerus, initial encounter for closed fracture (principal); E78.5 Hyperlipidemia, unspecified; K21.9 Gastro-esophageal reflux disease without esophagitis; Z96.651 Presence of right artificial knee joint; Z79.899 Other long term (current) drug therapy; W01.0XXA Fall on same level from slipping, tripping and stumbling without subsequent striking against object, initial encounter; Y93.9 Activity, unspecified; Y92.9 Unspecified place or not applicable; Y99.9 Unspecified external cause status
CPT/HCPCS: 73030; 73060; A4606; A4663